=== PATIENT | male | born 1945 | race Caucasian/White ===

== ENCOUNTER 2025-07-22 15:59 | Inpatient (IN) ==
[2025-07-22] MEDS: IPRATROPIUM/ALBUTEROL 3 ML AMPUL.NEB NEB ONE (16:25)
[2025-07-22] MEDS: LACTATED RINGERS 1,000 ML IV ONE (17:03)
[2025-07-22 17:14] LABS: Basophils # (Auto) 0.03 K/mcL (0.00-0.30); Basophils % (Auto) 0.4 % (0.0-2.0); Eosinophils # (Auto) 0.06 K/mcL (0.00-0.70); Eosinophils % (Auto) 0.8 % (0.0-7.0); Hematocrit 31.1 % (40.1-51.0); Hemoglobin 9.3 g/dL (13.7-17.5); Lymphocytes # (Auto) 0.41 K/mcL (1.50-4.80); Lymphocytes % (Auto) 5.4 % (15.5-49.0); Mean Corpuscular HGB Conc 29.9 g/dL (31.0-36.0); Monocytes # (Auto) 0.41 K/mcL (0.10-0.90); Monocytes % (Auto) 5.4 % (1.0-12.0); Neutrophils % (Auto) 87.9 % (38.0-78.0); Platelet Count 219 K/mcL (140-440); RBC 3.04 M/mcL (4.63-6.08); WBC 7.7 K/mcL (4.5-11.0)
[2025-07-22 17:36] LABS: Anion Gap 7.0 (8.0-16.0); Blood Urea Nitrogen 28 mg/dL (8-23); Calcium 9.3 mg/dL (8.6-10.4); Carbon Dioxide 33 mmol/L (22-30); Chloride 101 mmol/L (96-108); Glucose 225 mg/dL (70-105); Phosphorous 3.8 mg/dL (2.5-4.5); Potassium 4.6 mmol/L (3.3-5.1); Sodium 141 mmol/L (133-145)
[2025-07-22] MEDS: PIPERACILLIN SODIUM/TAZOBACTAM 3.375 GM in DEXTROSE 5% IN WATER 50 ML IV ONE (17:42)
[2025-07-22] MEDS: FUROSEMIDE 20 MG/2 ML VIAL IV ONE (19:50)
[2025-07-22] MEDS ORDERED: guaiFENesin/DEXTROMETHORPHAN 5ML UD CUP PO PRN (20:54)
[2025-07-22] MEDS ORDERED: ONDANSETRON 4 MG/2 ML VIAL IV PRN (20:54)
[2025-07-22] MEDS ORDERED: DEXTROSE 31 GM ORAL.SUSP PO PRN (20:54)
[2025-07-22] MEDS ORDERED: DEXTROSE 50% 50 ML VIAL IV PRN (20:54)
[2025-07-22] MEDS ORDERED: ACETAMINOPHEN 325 MG TABLET PO PRN (20:54)
[2025-07-22] MEDS ORDERED: IPRATROPIUM/ALBUTEROL 3 ML AMPUL.NEB NEB PRN (20:54)
[2025-07-22] MEDS: cefTRIAXone 2 GM in DEXTROSE 5% IN WATER 50 ML IV SCH (21:43)
[2025-07-22] MEDS: INSULIN LISPRO 1 UNIT/0.01 ML UNIT SQ SCH (21:43)
[2025-07-22] MEDS: DOCUSATE SODIUM 100 MG CAPSULE PO SCH (21:44)
[2025-07-22] MEDS: SENNOSIDES 1 TABLET PO SCH (21:44)
[2025-07-22] MEDS: 0.9 % SODIUM CHLORIDE 10 ML SYRINGE IV SCH (21:44)
[2025-07-22] MEDS ORDERED: [UNRECOGNIZED DRUG - OTHER] PO SCH (21:45)
[2025-07-22] MEDS ORDERED: CETIRIZINE 10 MG TABLET PO PRN (21:45)
[2025-07-22] MEDS ORDERED: NUT TX GLUC INTOL LAC FREE SOY PO SCH (21:45)
[2025-07-22] MEDS: AZITHROMYCIN 500 MG in DEXTROSE 5% IN WATER 250 ML IV SCH (22:19)
[2025-07-23 06:54] LABS: Basophils # (Auto) 0.01 K/mcL (0.00-0.30); Basophils % (Auto) 0.2 % (0.0-2.0); Eosinophils # (Auto) 0 K/mcL (0.00-0.70); Eosinophils % (Auto) 0 % (0.0-7.0); Hematocrit 29.4 % (40.1-51.0); Hemoglobin 8.9 g/dL (13.7-17.5); Lymphocytes # (Auto) 0.22 K/mcL (1.50-4.80); Lymphocytes % (Auto) 3.9 % (15.5-49.0); Mean Corpuscular HGB Conc 30.3 g/dL (31.0-36.0); Monocytes # (Auto) 0.09 K/mcL (0.10-0.90); Monocytes % (Auto) 1.6 % (1.0-12.0); Neutrophils % (Auto) 94.3 % (38.0-78.0); Platelet Count 182 K/mcL (140-440); RBC 2.85 M/mcL (4.63-6.08); WBC 5.6 K/mcL (4.5-11.0)
[2025-07-23 07:09] LABS: ALT/SGPT 14 U/L (<40); AST/SGOT 12 U/L (<40); Albumin 3.1 gm/dL (3.2-5.2); Albumin/Globulin Ratio 1.2 (1.0-2.3); Alkaline Phosphatase 97 U/L (39-117); Anion Gap 9.0 (8.0-16.0); Bilirubin,Total 0.4 mg/dL (0.1-1.0); Blood Urea Nitrogen 29 mg/dL (8-23); Calcium 8.6 mg/dL (8.6-10.4); Carbon Dioxide 31 mmol/L (22-30); Chloride 98 mmol/L (96-108); Globulin 2.6 gm/dL (2.2-3.7); Glucose 366 mg/dL (70-105); Potassium 5.0 mmol/L (3.3-5.1); Sodium 138 mmol/L (133-145)
[2025-07-23] MEDS: LEVOTHYROXINE 75 MCG TABLET PO SCH (07:31)
[2025-07-23] MEDS: FUROSEMIDE 40 MG TABLET PO SCH (07:31)
[2025-07-23] MEDS: PANTOPRAZOLE 40 MG TABLET PO SCH (07:31)
[2025-07-23 07:41] LABS: Estimated Average Glucose(eAG) 157 mg/dL; Hemoglobin A1C 7.1 % Hgb (4.0-6.0)
[2025-07-23] MEDS: LIOTHYRONINE 5 MCG TABLET PO SCH (08:28)
[2025-07-23] MEDS: APIXABAN 5 MG TABLET PO SCH (08:28)
[2025-07-23] MEDS: TAMSULOSIN 0.4 MG CAPSULE PO SCH (08:28)
[2025-07-23] MEDS: VITAMIN D3 25 MCG TABLET PO SCH (08:28)
[2025-07-23] MEDS: LOSARTAN 25 MG TABLET PO SCH (08:28)
[2025-07-23] MEDS: MAGNESIUM OXIDE 400 MG TABLET PO SCH (08:28)
[2025-07-23] MEDS: FLUTICASONE PROPIONATE SPRAY.NAS NS SCH (08:29)
[2025-07-23] MEDS: Tiotropium-Olodaterol [Stiolto Respimat] 2.5-2.5 mcg Inhaler INH SCH (08:29)
[2025-07-23] MEDS: DOCUSATE SODIUM 100 MG CAPSULE PO SCH (08:29)
[2025-07-23] MEDS: MULTIVIT,THER IRON,CA,FA & MIN 1 TABLET PO SCH (12:01)
[2025-07-23] MEDS ORDERED: DEXTROSE 50% 50 ML VIAL IV PRN (15:39)
[2025-07-23] MEDS ORDERED: DEXTROSE 31 GM ORAL.SUSP PO PRN (15:39)
[2025-07-23] MEDS: INSULIN LISPRO 1 UNIT/0.01 ML UNIT SQ SCH (17:17)
[2025-07-23] MEDS: INSULIN GLARGINE, HUMAN 1 UNIT/0.01 ML SQ SCH (22:24)
[2025-07-24 06:35] LABS: ALT/SGPT 18 U/L (<40); AST/SGOT 18 U/L (<40); Albumin 3.2 gm/dL (3.2-5.2); Albumin/Globulin Ratio 1.2 (1.0-2.3); Alkaline Phosphatase 98 U/L (39-117); Anion Gap 6.0 (8.0-16.0); Bilirubin,Total 0.3 mg/dL (0.1-1.0); Blood Urea Nitrogen 41 mg/dL (8-23); Calcium 8.9 mg/dL (8.6-10.4); Carbon Dioxide 35 mmol/L (22-30); Chloride 100 mmol/L (96-108); Globulin 2.6 gm/dL (2.2-3.7); Glucose 96 mg/dL (70-105); Potassium 4.8 mmol/L (3.3-5.1); Sodium 141 mmol/L (133-145)
[2025-07-24 06:41] LABS: Basophils # (Auto) 0.01 K/mcL (0.00-0.30); Basophils % (Auto) 0.1 % (0.0-2.0); Eosinophils # (Auto) 0.05 K/mcL (0.00-0.70); Eosinophils % (Auto) 0.5 % (0.0-7.0); Hematocrit 30.1 % (40.1-51.0); Hemoglobin 9.3 g/dL (13.7-17.5); Lymphocytes # (Auto) 0.71 K/mcL (1.50-4.80); Lymphocytes % (Auto) 6.8 % (15.5-49.0); Mean Corpuscular HGB Conc 30.9 g/dL (31.0-36.0); Monocytes # (Auto) 0.63 K/mcL (0.10-0.90); Monocytes % (Auto) 6.1 % (1.0-12.0); Neutrophils % (Auto) 86.4 % (38.0-78.0); Platelet Count 239 K/mcL (140-440); RBC 2.97 M/mcL (4.63-6.08); WBC 10.4 K/mcL (4.5-11.0)
[2025-07-24 08:25] VITALS: TEMP 98.3
[2025-07-24 12:10] VITALS: O2SAT 89
== END 2025-07-24 14:33 | disposition home or self-care (01) | DRG 193 ==
LOC: MEDSUR 15:59 → ED 15:59 → MEDSUR 20:45
PROVIDERS: ADMIT Internal Medicine; ATTEND Internal Medicine

== ENCOUNTER 2025-07-29 12:52 | Inpatient (IN) ==
[2025-07-29] MEDS: 0.9 % SODIUM CHLORIDE 1,000 ML IV ONE (13:28)
[2025-07-29 14:09] LABS: Basophils # (Auto) 0.02 K/mcL (0.00-0.30); Basophils % (Auto) 0.3 % (0.0-2.0); Eosinophils # (Auto) 0.03 K/mcL (0.00-0.70); Eosinophils % (Auto) 0.4 % (0.0-7.0); Hematocrit 31.8 % (40.1-51.0); Hemoglobin 10.0 g/dL (13.7-17.5); Lymphocytes # (Auto) 0.40 K/mcL (1.50-4.80); Lymphocytes % (Auto) 5.1 % (15.5-49.0); Mean Corpuscular HGB Conc 31.4 g/dL (31.0-36.0); Monocytes # (Auto) 0.34 K/mcL (0.10-0.90); Monocytes % (Auto) 4.4 % (1.0-12.0); Neutrophils % (Auto) 89.5 % (38.0-78.0); Platelet Count 141 K/mcL (140-440); RBC 3.19 M/mcL (4.63-6.08); WBC 7.8 K/mcL (4.5-11.0)
[2025-07-29 14:20] LABS: Anion Gap 15.0 (8.0-16.0); Blood Urea Nitrogen 48 mg/dL (8-23); Calcium 9.5 mg/dL (8.6-10.4); Carbon Dioxide 32 mmol/L (22-30); Chloride 89 mmol/L (96-108); Glucose 648 mg/dL (70-105); Potassium 6.1 mmol/L (3.3-5.1); Sodium 136 mmol/L (133-145)
[2025-07-29] MEDS: INSULIN REGULAR, HUMAN 1 UNIT/0.01 ML UNIT IV ONE ×2 (14:36→17:37)
[2025-07-29] MEDS: FUROSEMIDE 40 MG/4 ML VIAL IV ONE (14:36)
[2025-07-29] MEDS: cefTRIAXone 1 GM VIAL IV ONE (15:42)
[2025-07-29 16:04] LABS: C-Reactive Protein 0.83 mg/dL (0.03-0.80)
[2025-07-29] MEDS: 0.9 % SODIUM CHLORIDE 500 ML IV ONE (16:45)
[2025-07-29] MEDS ORDERED: ONDANSETRON 4 MG/2 ML VIAL IV PRN (16:57)
[2025-07-29] MEDS ORDERED: DEXTROSE 31 GM ORAL.SUSP PO PRN (16:57)
[2025-07-29] MEDS: AMPICILLIN SODIUM/SULBACTAM NA 3 GM in 0.9 % SODIUM CHLORIDE 100 ML IV SCH (16:58)
[2025-07-29] MEDS: LACTATED RINGERS 1,000 ML IV ONE ×2 (17:11→18:42)
[2025-07-29 17:18] LABS: Thyroid Stimulating Hormone 2.99 uIU/mL (0.27-5.01)
[2025-07-29] MEDS: DOXYCYCLINE 100 MG in DEXTROSE 5% IN WATER 100 ML IV SCH (17:23)
[2025-07-29] MEDS: INSULIN REGULAR, HUMAN 50 UNIT in 0.9 % SODIUM CHLORIDE 99.5 ML IV SCH (17:23)
[2025-07-29 17:40] LABS: ALT/SGPT 24 U/L (<40); AST/SGOT 15 U/L (<40); Albumin 3.5 gm/dL (3.2-5.2); Albumin/Globulin Ratio 1.4 (1.0-2.3); Alkaline Phosphatase 115 U/L (39-117); Anion Gap 11.0 (8.0-16.0); Bilirubin,Direct 0.2 mg/dL (<0.3); Bilirubin,Total 0.4 mg/dL (0.1-1.0); Blood Urea Nitrogen 46 mg/dL (8-23); Calcium 9.3 mg/dL (8.6-10.4); Carbon Dioxide 33 mmol/L (22-30); Chloride 94 mmol/L (96-108); Globulin 2.5 gm/dL (2.2-3.7); Glucose 538 mg/dL (70-105); Phosphorous 4.5 mg/dL (2.5-4.5); Potassium 5.0 mmol/L (3.3-5.1); Sodium 138 mmol/L (133-145); Triglycerides 68 mg/dL (<150); Uric Acid 9.9 mg/dL (2.5-8.0)
[2025-07-29 18:02] LABS: Bacteria,Urine 0 /hpf (0); Bilirubin,Urine NEGATIVE (Negative); Color,Urine LT. YELLOW; Glucose,Urine (UA) >=1000 mg/dL (Negative); Ketones,Urine NEGATIVE (Negative); Leukocyte Esterase,Urine NEGATIVE /uL (Negative); PH,Urine 6.0 (5.0-9.0); Protein,Urine NEGATIVE (Negative); Specific Gravity,Urine 1.010 (1.000-1.035); Urobilinogen,Urine 0.2 mg/dL
[2025-07-29 18:05] LABS: Estimated Average Glucose(eAG) 163 mg/dL; Hemoglobin A1C 7.3 % Hgb (4.0-6.0)
[2025-07-29 18:10] LABS: Barbiturate Screen,Urine None detected; Benzodiazepines Screen,Urine None detected; Fentanyl, Urine Screen None Detected; Opiate Screen,Urine None detected; Oxycodone, Urine Screen None detected; Phencyclidine Screen,Urine None detected
[2025-07-29] MEDS: LACTATED RINGERS 1,000 ML IV SCH ×2 (18:11→20:28)
[2025-07-29] MEDS: DEXTROSE 50% 50 ML SYRINGE IV ONE (18:43)
[2025-07-29] MEDS: INSULIN LISPRO 1 UNIT/0.01 ML UNIT SQ SCH (18:44)
[2025-07-29] MEDS: IPRATROPIUM/ALBUTEROL 3 ML AMPUL.NEB NEB SCH (19:07)
[2025-07-29 20:31] LABS: Anion Gap 11.0 (8.0-16.0); Blood Urea Nitrogen 43 mg/dL (8-23); Calcium 8.7 mg/dL (8.6-10.4); Carbon Dioxide 31 mmol/L (22-30); Chloride 98 mmol/L (96-108); Glucose 323 mg/dL (70-105); Potassium 4.3 mmol/L (3.3-5.1); Sodium 140 mmol/L (133-145)
[2025-07-29] MEDS ORDERED: NOREPINEPHRINE BITARTRATE 16 MG in 0.9 % SODIUM CHLORIDE 234 ML IV PRN (21:15)
[2025-07-29] MEDS ORDERED: NOREPINEPHRINE 250 ML IV PRN (21:22)
[2025-07-29] MEDS: 0.9 % SODIUM CHLORIDE 250 ML IV SCH (21:29)
[2025-07-29] MEDS: 0.9 % SODIUM CHLORIDE 10 ML SYRINGE IV SCH (21:30)
[2025-07-29] MEDS: INSULIN GLARGINE, HUMAN 1 UNIT/0.01 ML SQ ONE (21:46)
[2025-07-29] MEDS: APIXABAN 5 MG TABLET PO SCH (21:46)
[2025-07-29] MEDS: LACTATED RINGERS 500 ML IV ONE (21:48)
[2025-07-29] MEDS: ACETAMINOPHEN 1,000 MG/100 ML BAG IV PRN (23:09)
[2025-07-29 23:53] LABS: Anion Gap 13.0 (8.0-16.0); Blood Urea Nitrogen 41 mg/dL (8-23); Calcium 8.9 mg/dL (8.6-10.4); Carbon Dioxide 31 mmol/L (22-30); Chloride 99 mmol/L (96-108); Glucose 65 mg/dL (70-105); Potassium 4.2 mmol/L (3.3-5.1); Sodium 143 mmol/L (133-145)
[2025-07-30] MEDS: DEXTROSE 50% 50 ML VIAL IV PRN (00:03)
[2025-07-30 02:03] LABS: Anion Gap 8.6 (8.0-16.0); Blood Urea Nitrogen 39 mg/dL (8-23); Calcium 8.5 mg/dL (8.6-10.4); Carbon Dioxide 33 mmol/L (22-30); Chloride 99 mmol/L (96-108); Glucose 80 mg/dL (70-105); Potassium 4.2 mmol/L (3.3-5.1); Sodium 141 mmol/L (133-145)
[2025-07-30] MEDS: DEXTROSE 5%-LR 1,000 ML IV PRN (02:56)
[2025-07-30 06:43] LABS: ALT/SGPT 18 U/L (<40); AST/SGOT 17 U/L (<40); Albumin 2.9 gm/dL (3.2-5.2); Albumin/Globulin Ratio 1.5 (1.0-2.3); Alkaline Phosphatase 83 U/L (39-117); Anion Gap 10.0 (8.0-16.0); Bilirubin,Direct < 0.2 mg/dL (0-0.3); Bilirubin,Total 0.4 mg/dL (0.1-1.0); Blood Urea Nitrogen 38 mg/dL (8-23); Calcium 8.5 mg/dL (8.6-10.4); Carbon Dioxide 32 mmol/L (22-30); Chloride 100 mmol/L (96-108); Globulin 2.0 gm/dL (2.2-3.7); Glucose 73 mg/dL (70-105); Phosphorous 3.3 mg/dL (2.5-4.5); Potassium 4.2 mmol/L (3.3-5.1); Sodium 142 mmol/L (133-145); Triglycerides 25 mg/dL (<150); Uric Acid 8.8 mg/dL (2.5-8.0)
[2025-07-30 06:49] LABS: Basophils # (Auto) 0.03 K/mcL (0.00-0.30); Basophils % (Auto) 0.5 % (0.0-2.0); Eosinophils # (Auto) 0.06 K/mcL (0.00-0.70); Eosinophils % (Auto) 1.0 % (0.0-7.0); Hematocrit 28.0 % (40.1-51.0); Hemoglobin 8.6 g/dL (13.7-17.5); Lymphocytes # (Auto) 0.43 K/mcL (1.50-4.80); Lymphocytes % (Auto) 6.9 % (15.5-49.0); Mean Corpuscular HGB Conc 30.7 g/dL (31.0-36.0); Monocytes # (Auto) 0.34 K/mcL (0.10-0.90); Monocytes % (Auto) 5.4 % (1.0-12.0); Neutrophils % (Auto) 86.0 % (38.0-78.0); Platelet Count 119 K/mcL (140-440); RBC 2.75 M/mcL (4.63-6.08); WBC 6.3 K/mcL (4.5-11.0)
[2025-07-30] MEDS: DOXYCYCLINE 100 MG in DEXTROSE 5% IN WATER 100 ML IV SCH (07:04)
[2025-07-30] MEDS: LEVOTHYROXINE 75 MCG TABLET PO SCH (07:19)
[2025-07-30] MEDS ORDERED: LOSARTAN 25 MG TABLET PO SCH (09:00)
[2025-07-30] MEDS: LIOTHYRONINE 5 MCG TABLET PO SCH (09:14)
[2025-07-30] MEDS: TAMSULOSIN 0.4 MG CAPSULE PO SCH (09:15)
[2025-07-30] MEDS: Tiotropium-Olodaterol [Stiolto Respimat] 2.5-2.5 mcg Inhaler INH SCH (09:15)
[2025-07-30] MEDS: INSULIN GLARGINE, HUMAN 1 UNIT/0.01 ML SQ SCH (09:15)
[2025-07-30 10:16] LABS: INR 1.2 (0.9-1.1); Partial Thromboplastin Time 26.2 sec (20.0-37.0); Prothrombin Time 15.8 sec (11.9-14.5)
[2025-07-30 13:27] LABS: pH,Body Fluid 7.60
[2025-07-30 13:40] LABS: Amylase,Pleural Fluid 17 U/L; Glucose,Pleural Fluid 115 mg/dL; LDH,Pleural Fluid 44 U/L (<122)
[2025-07-30 14:13] LABS: Appearance,Pleural Fluid Clear; Mesothelial,Pleural Fluid 10 %; Nucleated Cells,Pleural Fld 200 /cumm
[2025-07-30] MEDS: DEXTROSE 5%-LR 1,000 ML IV SCH (17:44)
[2025-07-31 06:46] LABS: Basophils # (Auto) 0.02 K/mcL (0.00-0.30); Basophils % (Auto) 0.3 % (0.0-2.0); Eosinophils # (Auto) 0.11 K/mcL (0.00-0.70); Eosinophils % (Auto) 1.9 % (0.0-7.0); Hematocrit 31.8 % (40.1-51.0); Hemoglobin 10.0 g/dL (13.7-17.5); Lymphocytes # (Auto) 0.55 K/mcL (1.50-4.80); Lymphocytes % (Auto) 9.4 % (15.5-49.0); Mean Corpuscular HGB Conc 31.4 g/dL (31.0-36.0); Monocytes # (Auto) 0.29 K/mcL (0.10-0.90); Monocytes % (Auto) 4.9 % (1.0-12.0); Neutrophils % (Auto) 83.5 % (38.0-78.0); Platelet Count 106 K/mcL (140-440); RBC 3.20 M/mcL (4.63-6.08); WBC 5.9 K/mcL (4.5-11.0)
[2025-07-31 07:19] LABS: ALT/SGPT 21 U/L (<40); AST/SGOT 17 U/L (<40); Albumin 3.1 gm/dL (3.2-5.2); Albumin/Globulin Ratio 1.5 (1.0-2.3); Alkaline Phosphatase 84 U/L (39-117); Anion Gap 7.0 (8.0-16.0); Bilirubin,Direct 0.3 mg/dL (<0.3); Bilirubin,Total 0.4 mg/dL (0.1-1.0); Blood Urea Nitrogen 30 mg/dL (8-23); Calcium 8.7 mg/dL (8.6-10.4); Carbon Dioxide 35 mmol/L (22-30); Chloride 99 mmol/L (96-108); Globulin 2.1 gm/dL (2.2-3.7); Glucose 89 mg/dL (70-105); Phosphorous 3.2 mg/dL (2.5-4.5); Potassium 4.1 mmol/L (3.3-5.1); Sodium 141 mmol/L (133-145); Triglycerides 38 mg/dL (<150); Uric Acid 7.5 mg/dL (2.5-8.0)
[2025-07-31] MEDS: INSULIN LISPRO 1 UNIT/0.01 ML UNIT SQ SCH ×2 (12:12→17:44)
[2025-07-31] MEDS: IPRATROPIUM/ALBUTEROL 3 ML AMPUL.NEB NEB PRN (14:33)
[2025-07-31] MEDS: INSULIN GLARGINE, HUMAN 1 UNIT/0.01 ML SQ SCH (15:16)
[2025-07-31] MEDS: FUROSEMIDE 40 MG/4 ML VIAL IV ONE (15:17)
[2025-07-31] MEDS: IPRATROPIUM/ALBUTEROL 3 ML AMPUL.NEB NEB SCH (19:04)
[2025-07-31 20:55] LABS: HIV1/2 AG/AB 4TH Generation Non-Reactive (Non-Reactive)
[2025-08-01 05:49] LABS: Basophils # (Auto) 0.03 K/mcL (0.00-0.30); Basophils % (Auto) 0.5 % (0.0-2.0); Eosinophils # (Auto) 0.08 K/mcL (0.00-0.70); Eosinophils % (Auto) 1.3 % (0.0-7.0); Hematocrit 30.4 % (40.1-51.0); Hemoglobin 9.6 g/dL (13.7-17.5); Lymphocytes # (Auto) 0.33 K/mcL (1.50-4.80); Lymphocytes % (Auto) 5.2 % (15.5-49.0); Mean Corpuscular HGB Conc 31.6 g/dL (31.0-36.0); Monocytes # (Auto) 0.37 K/mcL (0.10-0.90); Monocytes % (Auto) 5.8 % (1.0-12.0); Neutrophils % (Auto) 86.9 % (38.0-78.0); Platelet Count 93 K/mcL (140-440); RBC 3.00 M/mcL (4.63-6.08); WBC 6.4 K/mcL (4.5-11.0)
[2025-08-01 06:05] LABS: ALT/SGPT 21 U/L (<40); AST/SGOT 24 U/L (<40); Albumin 3.0 gm/dL (3.2-5.2); Albumin/Globulin Ratio 1.4 (1.0-2.3); Alkaline Phosphatase 88 U/L (39-117); Anion Gap 8.0 (8.0-16.0); Bilirubin,Direct 0.3 mg/dL (<0.3); Bilirubin,Total 0.4 mg/dL (0.1-1.0); Blood Urea Nitrogen 32 mg/dL (8-23); Calcium 8.6 mg/dL (8.6-10.4); Carbon Dioxide 35 mmol/L (22-30); Chloride 101 mmol/L (96-108); Globulin 2.2 gm/dL (2.2-3.7); Glucose 75 mg/dL (70-105); Phosphorous 4.3 mg/dL (2.5-4.5); Potassium 3.9 mmol/L (3.3-5.1); Sodium 144 mmol/L (133-145); Triglycerides 18 mg/dL (<150); Uric Acid 7.1 mg/dL (2.5-8.0)
[2025-08-01] MEDS: ASPIRIN 81 MG TAB.CHEW PO SCH (09:07)
[2025-08-01] MEDS: FUROSEMIDE 40 MG/4 ML VIAL IV ONE (09:07)
[2025-08-01 13:23] LABS: Anion Gap 6.0 (8.0-16.0); Blood Urea Nitrogen 32 mg/dL (8-23); Calcium 8.3 mg/dL (8.6-10.4); Carbon Dioxide 37 mmol/L (22-30); Chloride 95 mmol/L (96-108); Glucose 435 mg/dL (70-105); Potassium 4.5 mmol/L (3.3-5.1); Sodium 138 mmol/L (133-145)
[2025-08-01 15:41] LABS: Hepatitis B Surface Antigen Negative (Negative)
[2025-08-01] MEDS: INSULIN LISPRO 1 UNIT/0.01 ML UNIT SQ SCH (20:11)
[2025-08-01] MEDS: DOXYCYCLINE HYCLATE 100 MG TABLET.ORL PO SCH (20:14)
[2025-08-02 06:07] LABS: Basophils # (Auto) 0.02 K/mcL (0.00-0.30); Basophils % (Auto) 0.2 % (0.0-2.0); Eosinophils # (Auto) 0.05 K/mcL (0.00-0.70); Eosinophils % (Auto) 0.5 % (0.0-7.0); Hematocrit 26.8 % (40.1-51.0); Hemoglobin 8.3 g/dL (13.7-17.5); Lymphocytes # (Auto) 0.25 K/mcL (1.50-4.80); Lymphocytes % (Auto) 2.6 % (15.5-49.0); Mean Corpuscular HGB Conc 31.0 g/dL (31.0-36.0); Monocytes # (Auto) 0.49 K/mcL (0.10-0.90); Monocytes % (Auto) 5.0 % (1.0-12.0); Neutrophils % (Auto) 91.6 % (38.0-78.0); Platelet Count 72 K/mcL (140-440); RBC 2.66 M/mcL (4.63-6.08); WBC 9.7 K/mcL (4.5-11.0)
[2025-08-02 06:23] LABS: ALT/SGPT 21 U/L (<40); AST/SGOT 26 U/L (<40); Albumin 2.8 gm/dL (3.2-5.2); Albumin/Globulin Ratio 1.3 (1.0-2.3); Alkaline Phosphatase 79 U/L (39-117); Anion Gap 8.0 (8.0-16.0); Bilirubin,Direct 0.3 mg/dL (<0.3); Bilirubin,Total 0.5 mg/dL (0.1-1.0); Blood Urea Nitrogen 31 mg/dL (8-23); Calcium 8.5 mg/dL (8.6-10.4); Carbon Dioxide 34 mmol/L (22-30); Chloride 97 mmol/L (96-108); Globulin 2.2 gm/dL (2.2-3.7); Glucose 144 mg/dL (70-105); Phosphorous 3.8 mg/dL (2.5-4.5); Potassium 4.5 mmol/L (3.3-5.1); Sodium 139 mmol/L (133-145); Triglycerides 35 mg/dL (<150); Uric Acid 6.5 mg/dL (2.5-8.0)
[2025-08-03 06:59] LABS: Basophils # (Auto) 0.02 K/mcL (0.00-0.30); Basophils % (Auto) 0.3 % (0.0-2.0); Eosinophils # (Auto) 0.06 K/mcL (0.00-0.70); Eosinophils % (Auto) 0.8 % (0.0-7.0); Hematocrit 26.4 % (40.1-51.0); Hemoglobin 8.0 g/dL (13.7-17.5); Lymphocytes # (Auto) 0.38 K/mcL (1.50-4.80); Lymphocytes % (Auto) 5.0 % (15.5-49.0); Mean Corpuscular HGB Conc 30.3 g/dL (31.0-36.0); Monocytes # (Auto) 0.45 K/mcL (0.10-0.90); Monocytes % (Auto) 5.9 % (1.0-12.0); Neutrophils % (Auto) 87.9 % (38.0-78.0); Platelet Count 102 K/mcL (140-440); RBC 2.52 M/mcL (4.63-6.08); WBC 7.6 K/mcL (4.5-11.0)
[2025-08-03 07:12] LABS: ALT/SGPT 19 U/L (<40); AST/SGOT 18 U/L (<40); Albumin 2.7 gm/dL (3.2-5.2); Albumin/Globulin Ratio 1.2 (1.0-2.3); Alkaline Phosphatase 83 U/L (39-117); Anion Gap 9.0 (8.0-16.0); Bilirubin,Direct 0.3 mg/dL (<0.3); Bilirubin,Total 0.4 mg/dL (0.1-1.0); Blood Urea Nitrogen 32 mg/dL (8-23); Calcium 8.7 mg/dL (8.6-10.4); Carbon Dioxide 34 mmol/L (22-30); Chloride 96 mmol/L (96-108); Globulin 2.3 gm/dL (2.2-3.7); Glucose 261 mg/dL (70-105); Phosphorous 3.7 mg/dL (2.5-4.5); Potassium 4.6 mmol/L (3.3-5.1); Sodium 139 mmol/L (133-145); Triglycerides 44 mg/dL (<150); Uric Acid 6.0 mg/dL (2.5-8.0)
[2025-08-03] MEDS ORDERED: PROPOFOL 200 MG/20 ML VIAL IV ONE (11:21)
[2025-08-03] MEDS ORDERED: ONDANSETRON 4 MG/2 ML VIAL ONE (11:22)
[2025-08-03] MEDS ORDERED: DEXAMETHASONE 10 MG/ML VIAL ONE (11:22)
[2025-08-03] MEDS ORDERED: LIDOCAINE 2% PF 5 ML VIAL ONE (11:22)
[2025-08-03] MEDS: AMPICILLIN SODIUM/SULBACTAM NA 3 GM in 0.9 % SODIUM CHLORIDE 100 ML IV ONE (12:31)
[2025-08-03] MEDS ORDERED: diphenhydrAMINE 50 MG/ML VIAL IV PRN (12:46)
[2025-08-03] MEDS ORDERED: IPRATROPIUM/ALBUTEROL 3 ML AMPUL.NEB NEB PRN (12:46)
[2025-08-03] MEDS ORDERED: fentaNYL 100 MCG/2 ML VIAL IV PRN (12:46)
[2025-08-03] MEDS ORDERED: NALOXONE HCL 0.4 MG/ML VIAL IV PRN (12:46)
[2025-08-03] MEDS ORDERED: MEPERIDINE 25 MG/ML VIAL IV PRN (12:46)
[2025-08-03] MEDS: LIDOCAINE 2% URO-JET 10 ML JEL.PF.APP UR ONE (12:59)
[2025-08-03] MEDS ORDERED: PHENYLephrine 1 MG/10 ML SYRINGE (ANEST) ONE (13:12)
[2025-08-03] MEDS ORDERED: ePHEDrine 50 MG/5 ML SYRINGE (ANEST) IV ONE (13:12)
[2025-08-03] MEDS: AMOXICILLIN/POTASSIUM CLAV 875 MG TABLET PO SCH (15:10)
[2025-08-03] MEDS: INSULIN GLARGINE, HUMAN 1 UNIT/0.01 ML SQ SCH (15:10)
[2025-08-04] MEDS: 0.9 % SODIUM CHLORIDE 1,000 ML IV ONE (01:29)
[2025-08-04 06:23] LABS: Basophils # (Auto) 0.01 K/mcL (0.00-0.30); Basophils % (Auto) 0.1 % (0.0-2.0); Eosinophils # (Auto) 0 K/mcL (0.00-0.70); Eosinophils % (Auto) 0 % (0.0-7.0); Hematocrit 22.7 % (40.1-51.0); Hemoglobin 7.1 g/dL (13.7-17.5); Lymphocytes # (Auto) 0.19 K/mcL (1.50-4.80); Lymphocytes % (Auto) 2.5 % (15.5-49.0); Mean Corpuscular HGB Conc 31.3 g/dL (31.0-36.0); Monocytes # (Auto) 0.22 K/mcL (0.10-0.90); Monocytes % (Auto) 2.9 % (1.0-12.0); Neutrophils % (Auto) 94.5 % (38.0-78.0); Platelet Count 97 K/mcL (140-440); RBC 2.23 M/mcL (4.63-6.08); WBC 7.5 K/mcL (4.5-11.0)
[2025-08-04 06:32] LABS: ALT/SGPT 16 U/L (<40); AST/SGOT 15 U/L (<40); Albumin 2.5 gm/dL (3.2-5.2); Albumin/Globulin Ratio 1.0 (1.0-2.3); Alkaline Phosphatase 75 U/L (39-117); Anion Gap 10.0 (8.0-16.0); Bilirubin,Direct 0.2 mg/dL (<0.3); Bilirubin,Total 0.3 mg/dL (0.1-1.0); Blood Urea Nitrogen 39 mg/dL (8-23); Calcium 8.5 mg/dL (8.6-10.4); Carbon Dioxide 30 mmol/L (22-30); Chloride 100 mmol/L (96-108); Globulin 2.4 gm/dL (2.2-3.7); Glucose 286 mg/dL (70-105); Phosphorous 4.6 mg/dL (2.5-4.5); Potassium 4.6 mmol/L (3.3-5.1); Sodium 140 mmol/L (133-145); Triglycerides 35 mg/dL (<150); Uric Acid 6.8 mg/dL (2.5-8.0)
[2025-08-04 08:14] LABS: Hematocrit 24.3 % (40.1-51.0); Hemoglobin 7.3 g/dL (13.7-17.5)
[2025-08-04] MEDS: ALBUMIN HUMAN 12.5 GM/50 ML VIAL IV ONE (15:36)
[2025-08-04] MEDS: FUROSEMIDE 100 MG/10 ML VIAL IV ONE (16:04)
[2025-08-04 18:38] LABS: Hematocrit 22.0 % (40.1-51.0); Hemoglobin 6.8 g/dL (13.7-17.5)
[2025-08-05] MEDS: FUROSEMIDE 20 MG/2 ML VIAL IV ONE ×2 (00:32→00:33)
[2025-08-05 07:42] LABS: ALT/SGPT 15 U/L (<40); AST/SGOT 13 U/L (<40); Albumin 2.8 gm/dL (3.2-5.2); Albumin/Globulin Ratio 1.3 (1.0-2.3); Alkaline Phosphatase 73 U/L (39-117); Anion Gap 7.0 (8.0-16.0); Bilirubin,Direct 0.3 mg/dL (<0.3); Bilirubin,Total 0.5 mg/dL (0.1-1.0); Blood Urea Nitrogen 44 mg/dL (8-23); Calcium 8.5 mg/dL (8.6-10.4); Carbon Dioxide 35 mmol/L (22-30); Chloride 97 mmol/L (96-108); Globulin 2.2 gm/dL (2.2-3.7); Glucose 183 mg/dL (70-105); Phosphorous 3.9 mg/dL (2.5-4.5); Potassium 4.5 mmol/L (3.3-5.1); Sodium 139 mmol/L (133-145); Triglycerides 41 mg/dL (<150); Uric Acid 7.1 mg/dL (2.5-8.0)
[2025-08-05] MEDS: PANTOPRAZOLE 40 MG TABLET PO SCH (08:21)
[2025-08-05 08:28] LABS: Basophils # (Auto) 0.02 K/mcL (0.00-0.30); Basophils % (Auto) 0.3 % (0.0-2.0); Eosinophils # (Auto) 0.03 K/mcL (0.00-0.70); Eosinophils % (Auto) 0.5 % (0.0-7.0); Hematocrit 29.8 % (40.1-51.0); Hemoglobin 9.6 g/dL (13.7-17.5); Lymphocytes # (Auto) 0.56 K/mcL (1.50-4.80); Lymphocytes % (Auto) 9.2 % (15.5-49.0); Mean Corpuscular HGB Conc 32.2 g/dL (31.0-36.0); Monocytes # (Auto) 0.30 K/mcL (0.10-0.90); Monocytes % (Auto) 4.9 % (1.0-12.0); Neutrophils % (Auto) 84.9 % (38.0-78.0); Platelet Count 103 K/mcL (140-440); RBC 3.13 M/mcL (4.63-6.08); WBC 6.1 K/mcL (4.5-11.0)
[2025-08-05] MEDS: ALBUMIN HUMAN 12.5 GM/50 ML VIAL IV ONE (09:11)
[2025-08-05] MEDS: acetaZOLAMIDE SOD 500 MG VIAL IV ONE (09:42)
[2025-08-06 06:04] LABS: Basophils # (Auto) 0.03 K/mcL (0.00-0.30); Basophils % (Auto) 0.4 % (0.0-2.0); Eosinophils # (Auto) 0.04 K/mcL (0.00-0.70); Eosinophils % (Auto) 0.6 % (0.0-7.0); Hematocrit 33.8 % (40.1-51.0); Hemoglobin 10.5 g/dL (13.7-17.5); Lymphocytes # (Auto) 0.51 K/mcL (1.50-4.80); Lymphocytes % (Auto) 7.6 % (15.5-49.0); Mean Corpuscular HGB Conc 31.1 g/dL (31.0-36.0); Monocytes # (Auto) 0.37 K/mcL (0.10-0.90); Monocytes % (Auto) 5.5 % (1.0-12.0); Neutrophils % (Auto) 85.8 % (38.0-78.0); Platelet Count 122 K/mcL (140-440); RBC 3.43 M/mcL (4.63-6.08); WBC 6.7 K/mcL (4.5-11.0)
[2025-08-06 06:34] LABS: ALT/SGPT 15 U/L (<40); AST/SGOT 12 U/L (<40); Albumin 3.1 gm/dL (3.2-5.2); Albumin/Globulin Ratio 1.3 (1.0-2.3); Alkaline Phosphatase 82 U/L (39-117); Anion Gap 8.0 (8.0-16.0); Bilirubin,Direct 0.3 mg/dL (<0.3); Bilirubin,Total 0.6 mg/dL (0.1-1.0); Blood Urea Nitrogen 44 mg/dL (8-23); Calcium 8.8 mg/dL (8.6-10.4); Carbon Dioxide 33 mmol/L (22-30); Chloride 98 mmol/L (96-108); Globulin 2.3 gm/dL (2.2-3.7); Glucose 246 mg/dL (70-105); Phosphorous 4.1 mg/dL (2.5-4.5); Potassium 4.3 mmol/L (3.3-5.1); Sodium 139 mmol/L (133-145); Triglycerides 57 mg/dL (<150); Uric Acid 7.0 mg/dL (2.5-8.0)
[2025-08-06] MEDS: ALBUMIN HUMAN 12.5 GM/50 ML VIAL IV ONE (08:26)
[2025-08-06] MEDS: acetaZOLAMIDE SOD 500 MG VIAL IV ONE (08:26)
[2025-08-06 09:57] LABS: Anisocytosis 1+ (None Seen); RBC Morphology ABNORMAL (Normal); Tear Drop Cells 1+ (None Seen)
[2025-08-06 13:02] LABS: Glucose,Pleural Fluid 192 mg/dL; LDH,Pleural Fluid 31 U/L (<122); pH,Body Fluid 7.64
[2025-08-06 13:27] LABS: Appearance,Pleural Fluid Clear; Color,Pleural Fluid Yellow; Nucleated Cells,Pleural Fld 27 /cumm
[2025-08-06 14:11] LABS: Amylase,Pleural Fluid 28 U/L
[2025-08-07 05:22] LABS: Basophils # (Auto) 0.03 K/mcL (0.00-0.30); Basophils % (Auto) 0.4 % (0.0-2.0); Eosinophils # (Auto) 0.05 K/mcL (0.00-0.70); Eosinophils % (Auto) 0.6 % (0.0-7.0); Hematocrit 32.3 % (40.1-51.0); Hemoglobin 9.8 g/dL (13.7-17.5); Lymphocytes # (Auto) 0.36 K/mcL (1.50-4.80); Lymphocytes % (Auto) 4.2 % (15.5-49.0); Mean Corpuscular HGB Conc 30.3 g/dL (31.0-36.0); Monocytes # (Auto) 0.40 K/mcL (0.10-0.90); Monocytes % (Auto) 4.7 % (1.0-12.0); Neutrophils % (Auto) 90.0 % (38.0-78.0); Platelet Count 116 K/mcL (140-440); RBC 3.25 M/mcL (4.63-6.08); WBC 8.5 K/mcL (4.5-11.0)
[2025-08-07 05:44] LABS: ALT/SGPT 13 U/L (<40); AST/SGOT 11 U/L (<40); Albumin 2.9 gm/dL (3.2-5.2); Albumin/Globulin Ratio 1.3 (1.0-2.3); Alkaline Phosphatase 75 U/L (39-117); Anion Gap 8.0 (8.0-16.0); Bilirubin,Direct 0.3 mg/dL (<0.3); Bilirubin,Total 0.5 mg/dL (0.1-1.0); Blood Urea Nitrogen 37 mg/dL (8-23); Calcium 8.8 mg/dL (8.6-10.4); Carbon Dioxide 32 mmol/L (22-30); Chloride 101 mmol/L (96-108); Globulin 2.2 gm/dL (2.2-3.7); Glucose 208 mg/dL (70-105); Phosphorous 3.3 mg/dL (2.5-4.5); Potassium 3.8 mmol/L (3.3-5.1); Sodium 141 mmol/L (133-145); Triglycerides 34 mg/dL (<150); Uric Acid 6.8 mg/dL (2.5-8.0)
[2025-08-07] MEDS: SPIRONOLACTONE 25 MG TABLET PO ONE (08:09)
[2025-08-07] MEDS: ALBUMIN HUMAN 12.5 GM/50 ML VIAL IV ONE (08:57)
[2025-08-07] MEDS: FUROSEMIDE 40 MG/4 ML VIAL IV ONE (09:38)
[2025-08-08 06:01] LABS: ALT/SGPT 11 U/L (<40); AST/SGOT 10 U/L (<40); Albumin 2.9 gm/dL (3.2-5.2); Albumin/Globulin Ratio 1.4 (1.0-2.3); Alkaline Phosphatase 75 U/L (39-117); Anion Gap 7.0 (8.0-16.0); Bilirubin,Direct 0.3 mg/dL (<0.3); Bilirubin,Total 0.6 mg/dL (0.1-1.0); Blood Urea Nitrogen 34 mg/dL (8-23); Calcium 8.8 mg/dL (8.6-10.4); Carbon Dioxide 31 mmol/L (22-30); Chloride 101 mmol/L (96-108); Globulin 2.1 gm/dL (2.2-3.7); Glucose 169 mg/dL (70-105); Phosphorous 3.1 mg/dL (2.5-4.5); Potassium 4.1 mmol/L (3.3-5.1); Sodium 139 mmol/L (133-145); Triglycerides 43 mg/dL (<150); Uric Acid 6.7 mg/dL (2.5-8.0)
[2025-08-08] MEDS: FUROSEMIDE 40 MG TABLET PO SCH (08:59)
[2025-08-08 11:54] VITALS: TEMP 98.1; O2SAT 92
== END 2025-08-08 13:24 | DRG 981 ==
LOC: ED 12:52 → ICU 16:52 → MEDSUR 08-07 17:18
PROVIDERS: ADMIT Student in an Organized Health Care Education/Training Program; ATTEND Student in an Organized Health Care Education/Training Program